=== PATIENT | male | born 2000 | race Caucasian/White ===

== ENCOUNTER 2018-10-20 15:34 | Emergency (ER) | payer OTHER, SELFPAY ==
[2018-10-20 15:35] VITALS: BP 105/62; PULSE 73; RESP 16; TEMP 36.4; O2SAT 98; BMI 21.7
--- NOTE | 2018-10-20 16:03 | RAD_ITS ---
STUDY: X-RAY - ABDOMEN/PELVIS REASON FOR EXAM: Male, 17 years old. Nausea and vomiting. Diarrhea TECHNIQUE: Single AP view of the abdomen / pelvis. COMPARISON: None. FINDINGS: Normal visualized lung bases. No dilated small bowel. Mild gaseous distention of the colon. There is no demonstrated free abdominal air. The visualized liver, spleen and kidneys are grossly normal in size and morphology. Normal soft tissue structures. Normal visualized osseous structures. RAD/Abdomen Single View IMPRESSION: Gaseous distention of the colon suggesting enterocolitis. Electronically Signed: Skyler Swanson MD at 17:04 EDT , Service support ,
--- NOTE | 2018-10-20 16:07 | ED.VISSUMM ---
- ER Visit Summary Date of Service: 10/20/18 Chief Complaint: Abdominal pain History of Present Illness: The patient is a 17 M presenting with abdominal pain. He states he had abdominal pain a week ago that resolved. He woke up again this morning with similar pain. He has had intermittent diarrhea and constipation. He denies black or bloody stool. He has had nausea vomiting today. He complains of diffuse abdominal cramping. He has had burning with urination. He denies testicular or scrotal pain. Denies fever. Denies other complaints. Physical Examination: Vitals are stable. Patient is afebrile. Alert no acute distress. HEENT exam is unremarkable. Neck is supple. Lungs are clear and equal bilaterally. Heart is regular rate and rhythm. Abdomen is soft mild diffuse tenderness with no rebound or guarding exam is normal. No rash, discharge, or testicular tenderness. Extremities are unremarkable. Skin is warm and dry. No focal neurologic deficit. Remainder of exam is unremarkable. Emergency Department Course and Treatment: Patient later noted that his girlfriend was recently diagnosed with gonorrhea and chlamydia. He denies discharge or rash. She is currently being treated at another facility. He does admit to unprotected intercourse. GC/chlamydia was sent. He was given Rocephin IM, Zithromax. Patient was given IV fluids, Zofran. KUB shows mild gaseous distention of the colon suggesting enterocolitis. CBC normal except white count 12.6. Chemistries unremarkable. Lipase is normal. On repeat evaluation, patient states his abdominal pain has resolved. His abdomen is soft and nontender with no rebound or guarding. Urinalysis is unremarkable. Advised to follow-up with his primary care physician. Advised return to the ED for any worsening complaints. Disposition: Discharge home Impression: Abdominal pain, STD exposure This note was generated with [employer] dictation software. It may contain incorrect words, spelling, and punctuation that were not noted in review of the chart prior to signing ED Disposition - Plan for ED Patient: Referrals: Meliza Alas,Out of [Primary Care Provider] -
[2018-10-20 16:30] LABS: Absolute Lymphocyte Count 1.89 X10^3/ul (0.83-4.51); Absolute Neutrophil Count 9.7 X10^3/uL (2.0-7.7); Basophil# 0.04 X10^3/uL; Basophil% 0.3 % (0-1); Eosinophil# 0.05 X10^3/uL; Eosinophils% 0.4 % (0-5); Hemoglobin 17.3 g/dl (13.0-16.5); Lymphocyte # 1.89 X10^3/ul (4.0); Mean Corp Hgb Conc 35.3 g/gl (32-36); Mean Corpuscular Hgb 29.9 pg (27.0-32.0); Mean Corpuscular Volume 84.8 fL (80-94); Mean Platelet Vol. 8.5 fl (6.2-12.0); Monocyte# 0.83 X10^3/uL; Monocyte% 6.6 % (0-10); Neutrophil # 9.72 X10^3/uL (2.7-7.7); Neutrophil % 77.3 % (47-70); Platelet Count 281 K/mm3 (150-450); RBC Distribution Width CV 12.3 % (11.6-14.6); RBC Distribution Width SD 37.8 fl (35.1-43.9); Red Blood Count 5.78 M/mm3 (4.6-6.2); White Blood Count 12.6 K/mm3 (4.4-11.0)
[2018-10-20 16:31] LABS: POSITIVE COUNT NO; POSITIVE DIFFERENTIAL NO; POSITIVE MORPHOLOGY NO
[2018-10-20] MEDS: Ondansetron 4 MG/2 ML Vial IV (16:33)
[2018-10-20] MEDS: 0.9% Normal Saline 1,000 ML 1000 ML IV (16:34)
[2018-10-20 16:41] LABS: ALB/GLOB Ratio 1.2 RATIO (0.9-2.4); AST(SGOT) 26 U/L (15-37); Alanine Aminotransfer ALT/SGPT 38 U/L (16-61); Albumin, Serum 4.5 g/dL (3.2-5.0); Alkaline Phosphatase 133 U/L (45-117); Anion Gap 3 (5-15); BUN 13 mg/dL (7-18); BUN/Creat Ratio 15.3 RATIO (10-20); Calcium,Total 9.6 mg/dL (8.5-10.1); Chloride 106 mmol/L (98-107); Creatinine, Serum 0.85 mg/dL (0.70-1.30); EST Glomerular Filtration Rate 122 mL/min (>60); Est Glom Filt Rate - Afr Amer 148 mL/min (>60); Estimated Creatinine Clearance 128.32 ml/min; Globulin 3.8 g/dL (2.2-4.2); Glucose 95 mg/dL (74-106); Lipase 88 U/L (73-393); Potassium 4.1 mmol/L (3.5-5.1); Protein, Total 8.3 g/dL (6.4-8.2); Sodium Level 138 mmol/L (136-145)
[2018-10-20] MEDS: Azithromycin 250 MG Tablet 1000 MG PO (17:32)
[2018-10-20 17:56] LABS: Mucous, Urine 0 SEEN /hpf (<or=2+); Red Blood Cells-Urine 0 SEEN /hpf (0-5); Squamous Epithelial Cells - UA 0 SEEN /hpf (0-5)
[2018-10-20 18:01] LABS: Color, Urine Yellow (Yellow); Glucose, Dipstick Normal (Normal); Ketone-Dipstick 5 mg/dl (Negative); Leukocyte Esterase-Dipstick 25 /ul (Negative); Nitrite-Dipstick Negative (Negative); Occult Blood-Urine Negative /ul (Negative); Protein-Dipstick Negative (Negative); Urine Bilirubin Dipstick Negative (Negative); Urine Clarity Sl. Cloudy (Clear); Urine Urobilinogen Normal (Normal)
[2018-10-20] MEDS: Ceftriaxone 500 MG Vial 250 MG IM (18:13)
[2018-10-20 18:14] VITALS: RESP 17
[2018-10-20 18:18] LABS: Bacteria 1+ /hpf (None Seen); White Blood Cells 0-5 SEEN /hpf (0-5)
--- NOTE | 2018-10-20 18:34 | ED.DEP ---
ED Disposition - Plan for ED Patient: Instructions: ED Abdominal Pain Unkn Cause Referrals: [facility] Doctor,Out of [Primary Care Provider] -
--- NOTE | 2018-10-20 18:34 | ED.DEP ---
ED Disposition - Plan for ED Patient: Instructions: ED Abdominal Pain Unkn Cause Prescriptions: Ondansetron [Zofran Odt] 4 mg PO Q8H PRN PRN #10 tablet PRN Reason: Nausea Referrals: [facility],Out of [Primary Care Provider] -
[2018-10-20 18:46] VITALS: BP 123/76; PULSE 76; RESP 18
[2018-10-20 21:13] LABS: Chlamydia Trachomatis by PCR POSITIVE (Negative); Neisserai gonorrhoeae by PCR Positive (Negative); Probe Check PASS
--- NOTE | 2018-10-20 21:42 | ED.RN ---
PT NOTIFIED OF URINE RESULTS
== END 2018-10-20 18:47 | disposition home or self-care (01) ==
PROVIDERS: Emergency Provider Emergency Medicine
DX: R10.9 Unspecified abdominal pain (principal); Z20.2 Contact with and (suspected) exposure to infections with a predominantly sexual mode of transmission; R11.2 Nausea with vomiting, unspecified; R30.0 Dysuria; K63.89 Other specified diseases of intestine; J45.909 Unspecified asthma, uncomplicated; F17.290 Nicotine dependence, other tobacco product, uncomplicated
CPT/HCPCS: 74018; 80053; 81001; 83690; 85025; 87491; 87591; 96361; 96372; 96374; 99284; J7030; J2405